=== PATIENT | female | born 1955 | race Caucasian/White ===

== ENCOUNTER 2017-02-22 09:04 | Day surgery (SDC) | payer OTHER ==
[~2017-02-22] VITALS: Ht 162.6 cm; Wt 73.5 kg
[~2017-02-22 09:04] MED LIST: CELE200C PO
[2017-02-22 09:34] VITALS: BP 114/80
[2017-02-22] MEDS ORDERED: LACTATED RINGERS 1,000 ML IV SCH (09:39)
[2017-02-22] MEDS ORDERED: FISH OIL PO (09:39)
[2017-02-22] MEDS ORDERED: MIDAZOLAM 1 MG/ML, 2ML ONE ×4 (10:37→10:47)
[2017-02-22] MEDS ORDERED: FENTANYL PF 100 MCG/2ML ONE (10:37)
[2017-02-22] MEDS ORDERED: PROPOFOL 10 MG/ML, 20ML ONE (10:47)
[2017-02-22] MEDS ORDERED: PROPOFOL 10 MG/ML, 50ML ONE (10:47)
[2017-02-22] MEDS ORDERED: FENTANYL PF 100 MCG/2ML IV PRN (11:00)
[2017-02-22] MEDS ORDERED: OXYcodone 5 MG/5 ML ORAL.SOL UDC PO PRN (11:00)
[2017-02-22] MEDS ORDERED: morphine SULFATE 10 MG/ML, 1ML IV PRN (11:00)
[2017-02-22] MEDS ORDERED: ONDANSETRON 2MG/ML, 2ML IVPush PRN (11:00)
[2017-02-22] MEDS ORDERED: MEPERIDINE/PF 25MG/0.5ML IVPush PRN (11:00)
[2017-02-22] MEDS ORDERED: ACETAMINOPHEN 325 MG TABLET PO PRN (11:00)
[2017-02-22] MEDS ORDERED: PROMETHAZINE 25 MG/ML, 1ML IV PRN (11:00)
== END 2017-02-22 12:43 ==
LOC: OUT 09:04
PROVIDERS: ATTEND Internal Medicine Gastroenterology
DX: Z09 Encounter for follow-up examination after completed treatment for conditions other than malignant neoplasm (principal); K63.3 Ulcer of intestine; E66.3 Overweight; F17.210 Nicotine dependence, cigarettes, uncomplicated; E03.9 Hypothyroidism, unspecified; Z86.010 Personal history of colon polyps; Z90.49 Acquired absence of other specified parts of digestive tract; Z98.0 Intestinal bypass and anastomosis status; Z90.710 Acquired absence of both cervix and uterus; Z72.89 Other problems related to lifestyle; Z79.82 Long term (current) use of aspirin; Z88.8 Allergy status to other drugs, medicaments and biological substances
CPT/HCPCS: 43235; 45380; 88305; 93005; J2250; J2704; J7120; J3010